=== PATIENT | male | born 1980 | race Two or more races ===

== ENCOUNTER 2024-03-31 08:05 | Emergency (ER) | payer OTHER ==
[~2024-03-31] VITALS: Ht 165.1 cm; Wt 110.7 kg
[2024-03-31] MEDS ORDERED: COZAAR100 MG PO (08:17)
[2024-03-31] MEDS ORDERED: TOPROL XL25 M1 (08:18)
[2024-03-31] MEDS ORDERED: HYDRODIURIL12.5 MG PO (08:18)
[2024-03-31] MEDS ORDERED: FAMOTIDINE/PF 20 MG/2 ML VIAL IV PUSH STA (08:55)
[2024-03-31 09:56] LABS: URINE APPEARANCE Cloudy; URINE BILIRRUBIN Negative (NEGATIVE); URINE BLOOD Large; URINE COLOR Yellow; URINE GLUCOSE Negative (NEGATIVE); URINE KETONE Negative (NEGATIVE); URINE LEUKOCYTE Trace; URINE NITRATE Negative; URINE PROTEIN 30 (NEGATIVE); URINE UROBILINOGEN 0.2 E.U./dl
[2024-03-31 09:57] LABS: HEMATOCRIT 43.1 % (39.0-48.0); HEMOGLOBIN 14.4 g/dL (13-16.00); MEAN CELL VOLUME 91.1 fL (80.0-100.00); MEAN CORPUSCULAR HEMOGLOBIN 30.3 pg (27.00-32.0); MEAN CORPUSCULAR HGB CONC 33.3 g/dl (32.0-36.0); PLATELET COUNT 303 K/uL (150-450); RED BLOOD COUNT 4.73 M/uL (4.00-6.00); RED CELL DISTRIBUTION WIDTH 12.7 % (11.5-14.5)
[2024-03-31 10:00] LABS: URINE BACTERIA 17.6 uL (0.0-1933); URINE EPITHELIAL CELLS 3.4 uL (0.0-38.8); URINE RBC 1946.9 uL (0.0-20.8); URINE WBC 14.8 uL (0.0-23.2)
[2024-03-31 10:24] LABS: ALBUMIN 3.7 gm/dL (3.4-5.0); BILIRUBIN TOTAL 0.59 mg/dL (0.3-1.2); CREATININE SERUM 0.99 mg/dL (0.70-1.30); GFR 82.12; GLOBULINA 3.8 G/DL (2.4-3.5); POTASSIUM 3.75 mEq/L (3.5-5.1); TOTAL PROTEIN 7.5 gm/dL (6.4-8.2)
[2024-03-31] MEDS ORDERED: KETOROLAC TROMETHAMINE 30 MG VIAL IM STA (15:20)
== END 2024-03-31 16:13 | disposition home or self-care (01) ==
LOC: ER 08:07
PROVIDERS: General Practice
DX: N20.9 Urinary calculus, unspecified (principal)

== ENCOUNTER 2024-06-23 | Emergency (ER) | payer OTHER ==
[~2024-06-23] VITALS: Ht 165.1 cm; Wt 108.9 kg
[~2024-06-23] MED LIST: COZAAR100 MG PO; HYDRODIURIL12.5 MG PO; TOPROL XL25 M1
[2024-06-23] MEDS ORDERED: KETOROLAC TROMETHAMINE 30 MG VIAL IV STA (01:18)
[2024-06-23] MEDS ORDERED: PROMETHAZINE HCL 50 MG/ML AMPUL IM STA (01:18)
[2024-06-23] MEDS ORDERED: TAMSULOSIN HCL 0.4 MG CAP PO STA (01:19)
[2024-06-23] MEDS ORDERED: SODIUM CHLORIDE 0.45 % 1,000 ML IV ONE (01:30)
[2024-06-23] MEDS ORDERED: KETOROLAC TROMETHAMINE 30 MG VIAL ONE (02:04)
[2024-06-23] MEDS ORDERED: TAMSULOSIN HCL 0.4 MG CAP PO ONE (02:04)
[2024-06-23] MEDS ORDERED: PROMETHAZINE HCL 50 MG/ML AMPUL IM ONE (02:04)
[2024-06-23 03:23] LABS: HEMATOCRIT 44.6 % (39.0-48.0); HEMOGLOBIN 14.8 g/dL (13-16.00); MEAN CORPUSCULAR HEMOGLOBIN 30.2 pg (27.00-32.0); MEAN CORPUSCULAR HGB CONC 33.2 g/dl (32.0-36.0); PLATELET COUNT 353 K/uL (150-450); RED BLOOD COUNT 4.91 M/uL (4.00-6.00); RED CELL DISTRIBUTION WIDTH 12.7 % (11.5-14.5)
[2024-06-23 03:32] LABS: CALCIUM 9.7 mg/dL (8.5-10.1); CREATININE SERUM 1.5 mg/dL (0.70-1.30); POTASSIUM 5.22 mEq/L (3.5-5.1)
[2024-06-23 04:01] LABS: GFR 50.61
[2024-06-23 04:25] LABS: URINE APPEARANCE Clear; URINE BILIRRUBIN Negative (NEGATIVE); URINE BLOOD Moderate; URINE COLOR Yellow; URINE GLUCOSE Negative (NEGATIVE); URINE KETONE Negative (NEGATIVE); URINE LEUKOCYTE Negative; URINE NITRATE Negative; URINE PROTEIN Negative (NEGATIVE)
[2024-06-23 04:29] LABS: URINE BACTERIA 18.3 uL (0.0-1933); URINE EPITHELIAL CELLS 1.5 uL (0.0-38.8); URINE RBC 330.1 uL (0.0-20.8); URINE WBC 10.2 uL (0.0-23.2)
[2024-06-23] MEDS ORDERED: TAMS0.4C PO (04:32)
[2024-06-23] MEDS ORDERED: KETO10TA2 PO (04:32)
[2024-06-23 04:33] LABS: URINE CAST 0.14 uL (0.0-1.40)
== END 2024-06-23 04:46 ==
LOC: ER 00:03
PROVIDERS: General Practice
DX: N23 Unspecified renal colic (principal); I10 Essential (primary) hypertension

== ENCOUNTER 2024-08-19 11:09 | Outpatient (CLI) | payer OTHER ==
[~2024-08-19 11:09] MED LIST changes: +KETO10TA2 PO; +TAMS0.4C PO
== END 2024-08-19 11:10 | disposition home or self-care (01) ==
LOC: NUCLEAR 11:09
PROVIDERS: ATTEND Internal Medicine Cardiovascular Disease
DX: I87.2 Venous insufficiency (chronic) (peripheral) (principal)

== ENCOUNTER 2024-08-21 14:51 | Emergency (ER) | payer OTHER ==
[~2024-08-21] VITALS: Ht 165.1 cm; Wt 113.4 kg
[2024-08-21] MEDS ORDERED: FAMOTIDINE/PF 20 MG in 0.9 % SODIUM CHLORIDE 8 ML IV PUSH STA (16:33)
[2024-08-21] MEDS ORDERED: CEFTRIAXONE SODIUM 1,000 MG VIAL IV ONE (16:45)
[2024-08-21] MEDS ORDERED: PIPERACILLIN/TAZOBACTAM SODIUM 3.375 GM VIAL IV ONE (16:45)
[2024-08-21] MEDS ORDERED: TAMSULOSIN HCL 0.4 MG CAP PO ONE ×2 (16:45→17:07)
[2024-08-21] MEDS ORDERED: 0.9 % SODIUM CHLORIDE 1,000 ML IV SCH ×3 (16:45)
[2024-08-21] MEDS ORDERED: KETOROLAC TROMETHAMINE 30 MG VIAL IV ONE (16:45)
[2024-08-21] MEDS ORDERED: KETOROLAC TROMETHAMINE 30 MG VIAL ONE (17:07)
[2024-08-21] MEDS ORDERED: CEFTRIAXONE SODIUM 1,000 MG VIAL ONE (17:07)
[2024-08-21 17:27] LABS: HEMOGLOBIN 14.2 g/dL (13-16.00); MEAN CELL VOLUME 91.6 fL (80.0-100.00); MEAN CORPUSCULAR HEMOGLOBIN 30.4 pg (27.00-32.0); MEAN CORPUSCULAR HGB CONC 33.2 g/dl (32.0-36.0); PLATELET COUNT 315 K/uL (150-450); RED BLOOD COUNT 4.69 M/uL (4.00-6.00); RED CELL DISTRIBUTION WIDTH 12.7 % (11.5-14.5)
[2024-08-21 17:56] LABS: ALBUMIN 3.8 gm/dL (3.4-5.0); BILIRUBIN TOTAL 0.67 mg/dL (0.3-1.2); CALCIUM 9.5 mg/dL (8.5-10.1); CREATININE SERUM 1.5 mg/dL (0.70-1.30); GFR 50.61; GLOBULINA 4.5 G/DL (2.4-3.5); TOTAL PROTEIN 8.3 gm/dL (6.4-8.2)
[2024-08-21 17:58] LABS: C-REACTIVE PROTEIN 0.67 MG/DL (0.00-0.29); POTASSIUM 5.98 mEq/L (3.5-5.1)
[2024-08-21 18:53] LABS: PH,URINE 6.5 (5.0-8.0); URINE APPEARANCE Clear; URINE BILIRRUBIN Negative (NEGATIVE); URINE BLOOD Small; URINE COLOR Yellow; URINE GLUCOSE Negative (NEGATIVE); URINE KETONE Trace (NEGATIVE); URINE LEUKOCYTE Negative; URINE NITRATE Negative; URINE PROTEIN Negative (NEGATIVE); URINE UROBILINOGEN 0.2 E.U./dl
[2024-08-21 18:54] LABS: ERYTHROCYTE SEDIMENTATION RATE 28 mm/hr
[2024-08-21 18:58] LABS: URINE EPITHELIAL CELLS 2.6 uL (0.0-38.8); URINE RBC 77.6 uL (0.0-20.8); URINE WBC 3.1 uL (0.0-23.2)
== END 2024-08-21 20:07 | disposition home or self-care (01) ==
LOC: ER 14:52
PROVIDERS: General Practice
DX: N20.1 Calculus of ureter (principal); R10.9 Unspecified abdominal pain; I10 Essential (primary) hypertension

== ENCOUNTER 2024-11-18 21:00 | Emergency (ER) | payer OTHER ==
[~2024-11-18] VITALS: Ht 165.1 cm; Wt 108.9 kg
[2024-11-19] MEDS ORDERED: PROMETHAZINE HCL 50 MG/ML AMPUL IM STA (00:20)
[2024-11-19] MEDS ORDERED: KETOROLAC TROMETHAMINE 30 MG VIAL IV STA (00:20)
[2024-11-19] MEDS ORDERED: TAMSULOSIN HCL 0.4 MG CAP PO STA (00:21)
[2024-11-19] MEDS ORDERED: FAMOTIDINE/PF 20 MG/2 ML VIAL IV PUSH STA (00:26)
[2024-11-19] MEDS ORDERED: SODIUM CHLORIDE 0.45 % 1,000 ML IV ONE (00:30)
[2024-11-19] MEDS ORDERED: KETOROLAC TROMETHAMINE 30 MG VIAL ONE (00:57)
[2024-11-19] MEDS ORDERED: FAMOTIDINE/PF 20 MG/2 ML VIAL ONE (00:57)
[2024-11-19] MEDS ORDERED: TAMSULOSIN HCL 0.4 MG CAP PO ONE (00:57)
[2024-11-19] MEDS ORDERED: PROMETHAZINE HCL 50 MG/ML AMPUL IM ONE (00:57)
[2024-11-19 02:15] LABS: BASO % 0.3 % (0.1-1.2); EOS # 0.07 (0.04-0.54); EOS % 0.7 % (0.7-7.0); HEMATOCRIT 44.4 % (40.1-51.0); HEMOGLOBIN 14.9 g/dL (13.7-17.5); LYMPH % 22.8 % (19.3-53.1); MEAN CORPUSCULAR HEMOGLOBIN 29.6 pg (25.6-32.2); MONO # 0.89 (0.24-0.82); MONO % 9.2 % (4.7-12.5); NEUT # 6.42 (1.56-6.13); NEUT % 66.8 % (34.0-71.1); PLATELET COUNT 321 K/uL (163-369); RED BLOOD COUNT 5.03 M/uL (4.63-6.08); RED CELL DISTRIBUTION WIDTH 11.6 % (11.6-14.4)
[2024-11-19 02:27] LABS: BILIRUBIN TOTAL 0.93 mg/dL (0.3-1.2); CALCIUM 9.7 mg/dL (8.5-10.1); CREATININE SERUM 1.81 mg/dL (0.70-1.30); GFR 40.74; POTASSIUM 3.75 mEq/L (3.5-5.1)
[2024-11-19 03:33] LABS: PH,URINE 5.5 (5.0-8.0); URINE APPEARANCE Cloudy; URINE BILIRRUBIN Negative (NEGATIVE); URINE BLOOD Large; URINE COLOR Yellow; URINE GLUCOSE Negative (NEGATIVE); URINE KETONE Negative (NEGATIVE); URINE LEUKOCYTE Trace; URINE NITRATE Negative; URINE UROBILINOGEN 0.2 E.U./dl
[2024-11-19 03:37] LABS: URINE BACTERIA 30.5 uL (0.0-1933); URINE EPITHELIAL CELLS 23.7 uL (0.0-38.8); URINE RBC 272.2 uL (0.0-20.8); URINE WBC 90.8 uL (0.0-23.2)
[2024-11-19 04:09] LABS: URINE PROTEIN 100 (NEGATIVE)
== END 2024-11-19 07:29 ==
LOC: ER 21:00
PROVIDERS: General Practice
DX: N20.1 Calculus of ureter (principal); R10.9 Unspecified abdominal pain; Z87.442 Personal history of urinary calculi; I10 Essential (primary) hypertension

== ENCOUNTER → 2024-12-20 | Emergency (ER) | payer OTHER ==
[~2024-12-20] VITALS: Ht 157.5 cm; Wt 113.4 kg
== END | disposition left against medical advice (07) ==
LOC: ER 01:09
DX: Z53.21 Procedure and treatment not carried out due to patient leaving prior to being seen by health care provider (principal)